=== PATIENT | female | born 1950 | race Caucasian/White ===

== ENCOUNTER 2018-11-13 08:00 | Inpatient (IN) | payer OTHER ==
[~2018-11-13] VITALS: Ht 152.4 cm; Wt 83.0 kg
[~2018-11-13 08:00] MED LIST: ASPIR 8181 MG PO; ATIVAN0.5 M1 PO; AVALIDE 150-12.1 TA1 PO; CENTRAM-CA9 MG/15 ML PO; NABUMETONE500 MG PO; OSTERA TABLET1 EACH PO; PERCOCET 5/3251 TAB PO; PRILOSEC OTC20 MG PO; PROSAC PO; SYNTHROID100 MCG PO; ZANTAC300 MG PO
[2018-11-13] MEDS ORDERED: SYNTHROID112 MCG PO (08:59)
[2018-11-13] MEDS ORDERED: PROZAC20 MG (09:48)
[2018-11-13] MEDS ORDERED: PNEU16DI2 (09:48)
[2018-11-13] MEDS ORDERED: ATACAND16 MG (09:49)
== END 2018-11-21 15:38 | DRG 470 ==
LOC: O/R 11-19 05:56 → SURG 11-19 05:56 → SURH 11-19 07:00 → SURG 11-19 12:04
PROVIDERS: ADMIT Orthopaedic Surgery
PROC: 0SRD0J9 Replacement of Left Knee Joint with Synthetic Substitute, Cemented, Open Approach (ICD-10-PCS; principal; 2018-11-19 07:00)
DX: M17.12 Unilateral primary osteoarthritis, left knee (principal); D62 Acute posthemorrhagic anemia; E03.8 Other specified hypothyroidism; I10 Essential (primary) hypertension; Z96.652 Presence of left artificial knee joint

== ENCOUNTER 2024-09-29 07:30 | Inpatient (IN) | payer OTHER ==
[~2024-09-29] VITALS: Wt 92.5 kg
[~2024-09-29 07:30] MED LIST changes: +ATACAND16 MG; +PNEU16DI2; +PROZAC20 MG; +SYNTHROID112 MCG PO
[2024-09-29] MEDS ORDERED: LIPITOR40 M1 (07:45)
[2024-09-29] MEDS ORDERED: VITAMIN B-121000 MC4 PO (07:46)
[2024-09-29] MEDS ORDERED: TOPROL XL25 M1 PO (07:46)
[2024-09-29 07:49] VITALS: BP 144/83
[2024-09-29 07:52] VITALS: BP 94/58
[2024-09-29 08:22] LABS: URINE APPEARANCE Clear; URINE BILIRRUBIN Negative (NEGATIVE); URINE BLOOD Negative; URINE COLOR Yellow; URINE GLUCOSE Negative (NEGATIVE); URINE KETONE Negative (NEGATIVE); URINE LEUKOCYTE Moderate; URINE NITRATE Negative; URINE PROTEIN Negative (NEGATIVE); URINE UROBILINOGEN 0.2 E.U./dl
[2024-09-29 08:25] LABS: URINE BACTERIA 69.7 uL (0.0-1933); URINE EPITHELIAL CELLS 3.1 uL (0.0-38.8); URINE RBC 3.2 uL (0.0-20.8); URINE WBC 73.5 uL (0.0-23.2)
[2024-09-29 08:29] LABS: HEMATOCRIT 40.7 % (36.0-45.00); HEMOGLOBIN 13.1 g/dL (12.0-15.00); MEAN CELL VOLUME 82.2 fL (80.00-100.00); MEAN CORPUSCULAR HEMOGLOBIN 26.5 pg (27.00-32.0); MEAN CORPUSCULAR HGB CONC 32.3 g/dl (32.0-36.0); PLATELET COUNT 349 K/uL (150-450); RED BLOOD COUNT 4.95 M/uL (4.00-6.00); RED CELL DISTRIBUTION WIDTH 14.9 % (11.5-14.5)
[2024-09-29 09:01] LABS: INR 0.96; PARTIAL THROMBOPLASTIN TIME 27.6 SECONDS (22.0-34.0); PROTHROMBIN TIME 10.5 SECONDS (9.0-11.5)
[2024-09-29 09:26] LABS: BILIRUBIN TOTAL 0.43 mg/dL (0.3-1.2); CALCIUM 9.6 mg/dL (8.5-10.1); CREATININE SERUM 0.68 mg/dL (0.55-1.02); GFR 84.35; GLOBULINA 3.8 G/DL (2.4-3.5); POTASSIUM 4.49 mEq/L (3.5-5.1); TOTAL PROTEIN 7.8 gm/dL (6.4-8.2)
[2024-10-07] MEDS ORDERED: CEFAZOLIN SODIUM 1,000 MG VIAL ONE (11:23)
[2024-10-07] MEDS ORDERED: VANCOMYCIN HCL 1,000 MG VIAL ONE (13:17)
[2024-10-07] MEDS ORDERED: LIDOCAINE HCL 1%/EPINEPHRINE 20ML VIAL IJ ONE (13:17)
[2024-10-07] MEDS ORDERED: KETOROLAC TROMETHAMINE 60 MG VIAL IM ONE (13:17)
[2024-10-07] MEDS ORDERED: TRANEXAMIC ACID 100MG/1ML (1000MG) AMPUL IV ONE (13:17)
[2024-10-07] MEDS ORDERED: BUPIVACAINE HCL/MPF 0.5% 30ML VIAL ONE (13:17)
[2024-10-07] MEDS ORDERED: hydrALAZINE HCL 20 MG VIAL ONE (14:56)
[2024-10-07] MEDS ORDERED: ZOLPIDEM TARTRATE 10 MG TABLET PO PRN (17:00)
[2024-10-07] MEDS ORDERED: ACETAMINOPHEN 325 MG TABLET PO SCH (17:00)
[2024-10-07] MEDS ORDERED: OxyCODONE HCL 5 MG TABLET (ROXICODONE) PO PRN (17:00)
[2024-10-07] MEDS ORDERED: GABAPENTIN 100 MG CAPSULE PO SCH (21:00)
[2024-10-08] MEDS ORDERED: GABAPENTIN 100 MG CAPSULE PO ONE (00:25)
[2024-10-08] MEDS ORDERED: ONDANSETRON HCL 2 MG/ML VIAL IV ONE (04:00)
[2024-10-08] MEDS ORDERED: MORPHINE SULFATE 4 MG/ML VIAL IV PRN (05:15)
[2024-10-08] MEDS ORDERED: CEFAZOLIN SODIUM 1,000 MG VIAL IV SCH (06:00)
[2024-10-08] MEDS ORDERED: IRON FUM,PS/FOLIC/BCOMP,C NO.9 1 CAP CAPSULE PO SCH (09:00)
[2024-10-08] MEDS ORDERED: SENNOSIDES 1 TAB TABLET PO SCH (09:00)
[2024-10-08] MEDS ORDERED: APIXABAN 2.5 MG TABLET PO SCH (09:00)
[2024-10-08] MEDS ORDERED: ACETAMINOPHEN 325 MG TABLET PO ONE (11:53)
[2024-10-08] MEDS ORDERED: CEFAZOLIN SODIUM 1,000 MG VIAL ONE (11:53)
[2024-10-08 12:17] LABS: HEMATOCRIT 33.4 % (36.0-45.00); MEAN CELL VOLUME 82.4 fL (80.00-100.00); MEAN CORPUSCULAR HGB CONC 32.2 g/dl (32.0-36.0); PLATELET COUNT 258 K/uL (150-450); RED BLOOD COUNT 4.05 M/uL (4.00-6.00); RED CELL DISTRIBUTION WIDTH 14.5 % (11.5-14.5)
[2024-10-08 12:18] LABS: HEMOGLOBIN 10.7 g/dL (12.0-15.00); MEAN CORPUSCULAR HEMOGLOBIN 26.4 pg (27.00-32.0)
[2024-10-08] MEDS ORDERED: ONDANSETRON HCL 2 MG/ML VIAL IV SCH (13:00)
[2024-10-08 16:21] VITALS: BP 114/67
[2024-10-09] VITALS: BP 106/63
[2024-10-09] MEDS ORDERED: LEVOTHYROXINE SODIUM 112 MCG TABLET PO SCH (06:00)
[2024-10-09] MEDS ORDERED: CANDESARTAN CILEXETIL 16 MG TABLET PO SCH (09:00)
[2024-10-09] MEDS ORDERED: FLUOXETINE HCL 20 MG CAPSULE PO SCH (09:00)
[2024-10-09] MEDS ORDERED: METOPROLOL SUCCINATE 25 MG TAB.SR.24H PO SCH (09:00)
[2024-10-09] MEDS ORDERED: FAMOtidine 20 MG TABLET PO SCH (09:00)
[2024-10-09] MEDS ORDERED: FLUOXETINE HCL 10 MG CAPSULE PO SCH (09:00)
[2024-10-09 09:23] VITALS: BP 145/69
[2024-10-09 10:20] LABS: HEMATOCRIT 33.1 % (36.0-45.00); HEMOGLOBIN 10.6 g/dL (12.0-15.00); MEAN CELL VOLUME 82.3 fL (80.00-100.00); MEAN CORPUSCULAR HEMOGLOBIN 26.5 pg (27.00-32.0); MEAN CORPUSCULAR HGB CONC 32.1 g/dl (32.0-36.0); PLATELET COUNT 245 K/uL (150-450); RED BLOOD COUNT 4.02 M/uL (4.00-6.00); RED CELL DISTRIBUTION WIDTH 14.8 % (11.5-14.5)
[2024-10-09] MEDS ORDERED: ELIQUIS2.5 MG PO (13:12)
[2024-10-09] MEDS ORDERED: MORPHINE SU4 MG/1 M2 IV (13:12)
[2024-10-09] MEDS ORDERED: GABAPENTIN100 MG PO (13:12)
[2024-10-09] MEDS ORDERED: NORFLEX100MG PO (13:14)
[2024-10-09] MEDS ORDERED: OXYCODONE HCL5 MG PO (13:17)
[2024-10-09] MEDS ORDERED: LORazepam 0.5 MG TABLET PO SCH (21:00)
== END 2024-10-09 18:11 | DRG 470 ==
LOC: O/R 10-07 06:04 → OB/GYN 10-07 06:04 → SURH 10-07 07:30 → OB/GYN 10-07 20:00
PROVIDERS: ADMIT Orthopaedic Surgery; ATTEND Orthopaedic Surgery
PROC: 0SRC0JZ Replacement of Right Knee Joint with Synthetic Substitute, Open Approach (ICD-10-PCS; principal; 2024-10-07)
DX: M17.11 Unilateral primary osteoarthritis, right knee (principal); M85.661 Other cyst of bone, right lower leg; I10 Essential (primary) hypertension; E03.9 Hypothyroidism, unspecified